=== PATIENT | male | born 1985 | race Two or more races ===

== ENCOUNTER 2024-09-29 08:31 | Emergency (ER) | payer MEDICAID, OTHER ==
[~2024-09-29] VITALS: Ht 170.2 cm; Wt 62.1 kg
[~2024-09-29 08:31] MED LIST: LORA2TAB95 PO
[2024-09-29 08:41] VITALS: BP 120/87; TEMP 98
[2024-09-29 09:10] VITALS: O2SAT 98
== END 2024-09-29 09:10 | disposition home or self-care (01) ==
LOC: ER 08:45
DX: K13.0 Diseases of lips (principal); F12.90 Cannabis use, unspecified, uncomplicated; F17.200 Nicotine dependence, unspecified, uncomplicated; F41.9 Anxiety disorder, unspecified; Z88.6 Allergy status to analgesic agent